=== PATIENT | female | born 1955 | race Caucasian/White ===

== ENCOUNTER → 2016-10-04 | Outpatient (CLI) | payer BC | END | disposition home or self-care (01) | LOC: RAD.S 11:20 | DX: Z12.31 Encounter for screening mammogram for malignant neoplasm of breast (principal) ==

== ENCOUNTER → 2016-10-11 | Outpatient (CLI) | payer BC | END | disposition home or self-care (01) | LOC: RAD.S 10-05 09:31 | DX: R92.8 Other abnormal and inconclusive findings on diagnostic imaging of breast (principal) ==